=== PATIENT | female | born 1980 | race Caucasian/White ===

== ENCOUNTER 2018-06-12 06:09 | Day surgery (SDC) | payer OTHER ==
[2018-06-06 10:33] LABS: HEMATOCRIT 40.2 % (36.0-47.0); HEMOGLOBIN 14.3 g/dL (12.0-15.5); MEAN CORPUSCULAR HEMOGLOBIN 31.1 pg (27.0-33.4); MEAN CORPUSCULAR HGB CONC 35.5 g/dL (32.0-36.0); MEAN CORPUSCULAR VOLUME 88 fl (80-97); PLATELET COUNT 209 10^3/uL (150-450); RED BLOOD COUNT 4.59 10^6/uL (3.72-5.28); RED CELL DISTRIBUTION WIDTH 12.8 % (11.5-14.0); WHITE BLOOD COUNT 4.6 10^3/uL (4.0-10.5)
[2018-06-06 11:10] LABS: ALANINE AMINOTRANSFERASE 25 U/L (9-52); ALBUMIN 4.7 g/dL (3.5-5.0); ALKALINE PHOSPHATASE 38 U/L (38-126); ANION GAP 12 (5-19); ASPARTATE AMINO TRANSFERASE 19 U/L (14-36); BILIRUBIN,DIRECT 0.2 mg/dL (0.0-0.4); BILIRUBIN,TOTAL 0.7 mg/dL (0.2-1.3); BLOOD UREA NITROGEN 12 mg/dL (7-20); CALCIUM 9.8 mg/dL (8.4-10.2); CARBON DIOXIDE 30 mmol/L (22-30); CHLORIDE 101 mmol/L (98-107); GLUCOSE 95 mg/dL (75-110); POTASSIUM 4.6 mmol/L (3.6-5.0); SODIUM 142.5 mmol/L (137-145); TOTAL PROTEIN 7.7 g/dL (6.3-8.2)
[2018-06-06 11:54] LABS: APPEARANCE,URINE CLEAR; BILIRUBIN,URINE NEGATIVE (NEGATIVE); COLOR,URINE YELLOW; GLUCOSE, URINE NEGATIVE (NEGATIVE); KETONES,URINE NEGATIVE (NEGATIVE); LEUKOCYTE ESTERASE,URINE NEGATIVE (NEGATIVE); NITRITE,URINE NEGATIVE (NEGATIVE); PROTEIN,URINE NEGATIVE (NEGATIVE); URINE SPECIFIC GRAVITY 1.016; UROBILINOGEN,URINE NEGATIVE mg/dL (<2.0)
[~2018-06-12 06:09] MED LIST: CLINDAMYCIN 900 MG/D5W RTU 900 MG/50 ML RTUPB IV PRN; GENTAMICIN SULFATE 120 MG in DEXTROSE 5%-WATER 100 ML IV PRN; LACTATED RINGERS 1000 ML IV PRN; LIDOCAINE 0.5% INJ-PF (5 MG/ML) 50 ML SDV SUBCUT PRN
[2018-06-12] MEDS ORDERED: METHYLENE BLUE 50 MG/10 ML AMPULE ONE (07:10)
[2018-06-12] MEDS ORDERED: LIDOCAINE 1%/EPINEPHRINE INJ 20 ML VIAL ONE (07:10)
[2018-06-12] MEDS ORDERED: GENTAMICIN SULFATE INJ 80 MG/2 ML VIAL ONE (07:11)
[2018-06-12] MEDS ORDERED: FENTANYL CITRATE INJ/PF 250 MCG/5 ML AMPULE ONE (07:54)
[2018-06-12] MEDS ORDERED: ACETAMINOPHEN 1,000 MG/100 ML RTUPB IV ONE ×2 (07:54→18:30)
[2018-06-12] MEDS ORDERED: PROPOFOL INJ 200 MG/20 ML VIAL IV ONE (07:54)
[2018-06-12] MEDS ORDERED: LIDOCAINE 2% INJ-PF (20 MG/ML) 10 ML AMPUL ONE (07:54)
[2018-06-12] MEDS ORDERED: MIDAZOLAM 2 MG/2 ML INJ ONE (08:17)
[2018-06-12] MEDS ORDERED: BUPIVACAINE HCL 0.25 % INJ/PF (2.5 MG/1 ML) 30 ML VIAL ONE (08:52)
[2018-06-12] MEDS ORDERED: ESTROGENS,CONJUGATED 0.625 MG/1 GM 30 GM TUBE PV PRN (09:19)
[2018-06-12] MEDS ORDERED: MORPHINE SULFATE 10 MG/ML INJ IV PRN ×2 (09:34→11:31)
[2018-06-12] MEDS ORDERED: MEPERIDINE HCL/PF INJ 25 MG/1 ML DISP.SYRIN IV PRN (09:34)
[2018-06-12] MEDS ORDERED: PROMETHAZINE HCL INJ 25 MG/1 ML VIAL IV PRN ×2 (09:34)
[2018-06-12] MEDS ORDERED: FENTANYL CITRATE INJ/PF 100 MCG/2 ML AMPUL IV PRN ×3 (09:34)
[2018-06-12] MEDS ORDERED: DIPHENHYDRAMINE HCL 50 MG/ML VIAL IV PRN (09:34)
[2018-06-12] MEDS ORDERED: OXYCODONE-ACETAMINOPHEN 5-325 MG TABLET PO PRN ×3 (09:34→11:31)
[2018-06-12] MEDS: FENTANYL CITRATE INJ/PF 100 MCG/2 ML AMPUL ONE ×2 (11:03→11:22)
--- NOTE | 2018-06-12 11:25 | OPERATIVE REPORT E ---
Operative Report NAME: MOIRA PEREZ : 1980 AGE: 37Y DATE OF SURGERY: 06/12/2018 ROOM: PREOPERATIVE DIAGNOSES: 1. Abnormal uterine bleeding. 2. Chronic pelvic pain. 3. Uterine prolapse. POSTOPERATIVE DIAGNOSES: 1. Abnormal uterine bleeding. 2. Chronic pelvic pain. 3. Uterine prolapse. SURGEON: FABIOLA GALO M.D. ANESTHESIA: Dr. Hogna with general. FINDINGS: There was a large boggy uterus approximately 12 weeks in size. It was quite soft and boggy and normal-appearing ovaries. One did have a small hemorrhagic cyst on it, but this was left alone. This was on the left. The right ovary was normal. The fallopian tubes were normal as well. ESTIMATED BLOOD LOSS: 100 mL. COMPLICATIONS: None. SPECIMENS REMOVED: Uterus, cervix, and bilateral fallopian tubes. PROCEDURES: 1. Robotic-assisted total laparoscopic hysterectomy with bilateral salpingectomy. 2. Uterosacral suspension of the vaginal cuff. DESCRIPTION OF PROCEDURE: The patient was taken to the operating room and prepared and draped in a normal sterile fashion in the dorsal lithotomy position. Under sterile conditions, Fuentes catheter was placed to gravity. A sterile speculum was then placed into the vagina and the cervix was grasped on the anterior lip with a single-toothed tenaculum. The cervix was then dilated to accommodate a medium VCare, which was placed without difficulty. Speculum was then removed and attention was turned to the upper portion of the case after changing the gloves. Umbilical skin incision was made right at the umbilicus to accommodate the Gelpoint. This was approximately 2.5 cm long. The incision was then carried through to the underlying layer of fascia and the fascia was excised with Agosto's. The fascia was extended with Agosto's to accommodate at least 2 fingerbreadths and the GelPort was then inserted. The morcellation bag was then inserted into the right pericolic gutter. The abdomen was then inflated with 2 L of CO2 gas through the AirSeal port that was placed at the GelPort and the camera was introduced through the camera port with the above findings noted. The patient was placed in steep Trendelenburg, and under direct vision, two 5 mm ports were placed on either side of the umbilicus approximately 10 cm on each side. The robot was then docked and I unscrubbed, and then starting with the left adnexa, removed the left fallopian tube using the monopolar scissors and the vessel sealer as needed and this was removed by the patent legal assistant to the patent legal assistant's port. I then began with the left utero-ovarian ligament and transected this using the vessel sealer and carried this through to the uterine arteries down to the level of the external cervical os where the VCare cup could be located through the mucosa. I then went to the right adnexa and again removed the fallopian tube using the monopolar scissors and the vessel sealer as needed. Once the fallopian tube was removed, I then began at the utero-ovarian ligament and transected this using the vessel sealer and continued transection at the uterine arteries down to the level of the external cervical os using the vessel sealer. I then created the bladder flap using the monopolar scissors and blunt dissection. Beginning on the posterior side next to the uterosacral ligament, I then created the colpotomy using the monopolar scissors and carrying this around circumferentially following the outline of the VCare cup through the mucosa until the specimen was completely free. The specimen was then placed into the posterior cul-de-sac and the instruments were changed to a [employer] and a Prograf. The V-Loc needle was then introduced through the assistance port and closed the vaginal cuff using the V-Loc and incorporating the uterosacral ligament into the vaginal cuff closure for support. I completed this until the cuff was completely closed. I then inspected for hemostasis and found this to be so. The ureters seemed to be peristalsing at the end of this portion of the case. I then grasped the applied medical morcellation bag and brought this to the posterior cul-de-sac and placed the specimen on top of it. We then opened the bag and placed the specimen inside. While they undocked, I scrubbed back in. We removed the trocars and removed the GelPort. The morcellation bag edge was then pulled up through the GelPort and the morcellation of the uterus was completed using an 11-blade in a C-cut technique until the specimen was freed. The morcellation bag was then removed. The GelPort was then completely removed. The umbilical skin incision was closed at the fascia using 0 Vicryl on a UR6 needle and the skin was closed at all 3 sites using a 4-0 Vicryl. I inspected the vagina at the conclusion of the case. The anterior aspect that had been prolapsing seemed to be repaired with the uterosacral suspension and was not prolapsing with any significance at all and I did have the anesthesiologist create some Valsalva maneuver for the patient and there was no descent of the vaginal mucosa. The posterior aspect of the vaginal mucosa did seem to have a small amount of possible rectocele, but it was extremely mild. At this point, I did not feel that this was necessary to try to repair and decided to conclude the case. I do think that the patient may possibly need some prolapse surgery in the future, but it should be far enough in the future that we can get more longevity out of the procedure by doing it many years down the road as opposed to currently and having the procedure not get as much longevity. The patient tolerated the procedure well. Sponge, lap, and needle counts were correct x2, and the patient was taken to recovery in stable condition after the Fuentes catheter was removed. DICTATING PHYSICIAN: FABIOLA GALO M.D. [id number] PHY#: [id number] ID: [id number] JOB#: [id number] ACCT: [id number] cc:FABIOLA GALO M.D. >
[2018-06-12] MEDS ORDERED: KETOROLAC TROMETHAMINE INJ/PF 30 MG/1 ML SDV ONE (11:26)
[2018-06-12] MEDS: KETOROLAC TROMETHAMINE INJ/PF 30 MG/1 ML SDV IV SCH ×2 (13:25→22:32)
[2018-06-12] MEDS ORDERED: SUCCINYLCHOLINE CHLORIDE INJ 200 MG/10 ML VIAL ONE (15:29)
[2018-06-12] MEDS ORDERED: ONDANSETRON HCL INJ/PF 4 MG/2 ML SDV ONE (15:29)
[2018-06-12] MEDS ORDERED: ROCURONIUM BROMIDE INJ 50 MG/5 ML VIAL IV ONE (15:29)
[2018-06-12] MEDS ORDERED: GLYCOPYRROLATE 1 MG/5 ML SYRINGE ONE (15:29)
[2018-06-12] MEDS ORDERED: NEOSTIGMINE METHYLSULFATE 10 MG/10 ML VIAL ONE (15:29)
[2018-06-12] MEDS ORDERED: DEXAMETHASONE SOD PHOSPHATE INJ 4 MG/1 ML VIAL ONE (15:29)
[2018-06-13 05:13] LABS: HEMATOCRIT 31.9 % (36.0-47.0); HEMOGLOBIN 11.3 g/dL (12.0-15.5); MEAN CORPUSCULAR HEMOGLOBIN 31.2 pg (27.0-33.4); MEAN CORPUSCULAR HGB CONC 35.3 g/dL (32.0-36.0); MEAN CORPUSCULAR VOLUME 88 fl (80-97); PLATELET COUNT 166 10^3/uL (150-450); RED BLOOD COUNT 3.61 10^6/uL (3.72-5.28); WHITE BLOOD COUNT 10.4 10^3/uL (4.0-10.5)
[2018-06-13] MEDS: KETOROLAC TROMETHAMINE INJ/PF 30 MG/1 ML SDV IV SCH (06:30)
[2018-06-13] MEDS ORDERED: IBUPROFEN 800 MG TABLET ONE (08:39)
--- NOTE | 2018-06-13 09:31 | PDOC DISCHARGE SUMMARY ---
General - Admit/Disc Date/PCP Admission Date/Primary Care Provider: MICHAEL QUINONES MD Discharge Date: 06/13/18 - Discharge Diagnosis (1) Abnormal uterine bleeding Is this a current diagnosis for this admission?: Yes (2) Uterus, adenomyosis Is this a current diagnosis for this admission?: Yes (3) Uterine hypertrophy Is this a current diagnosis for this admission?: Yes (4) Chronic pelvic pain in female Is this a current diagnosis for this admission?: Yes - Additional Information Home Medications: Alprazolam [Xanax 0.25 Mg Tablet] 0.5 mg PO ASDIR PRN 08/15/13 Fluticasone Propionate [Flonase Allergy Relief] 15.8 ml NS DAILY 06/06/18 Sertraline HCl [Zoloft] 100 mg PO DAILY 06/06/18 History of Present Illness History of Present Illness: MOIRA PEREZ is a 37 year old female Hospital Course Hospital Course: underwent robotic hysterectomy with an unremarkable post operative course. feeling well today and ready for discharge home Physical Exam - Physical Exam Vital Signs: Temp Pulse Resp BP Pulse Ox 97.8 F 77 16 106/63 99 06/13/18 07:43 06/13/18 07:43 06/13/18 07:43 06/13/18 07:43 06/13/18 07:43 Intake & Output 06/12/18 06/13/18 06/14/18 06:59 06:59 06:59 Intake Total 0 3540 Output Total 1925 Balance 0 1615 Weight 68.04 kg 70.2 kg General appearance: PRESENT: no acute distress, cooperative GI/Abdominal exam: PRESENT: soft - incisions clean dry and intact. Result Laboratory Results: 06/13/18 05:01 06/06/18 10:05 06/13/18 05:01 WBC 10.4 RBC 3.61 L Hgb 11.3 L Hct 31.9 L MCV 88 MCH 31.2 MCHC 35.3 RDW 13.0 Plt Count 166 Plan Discharge Plan: discharge home with scheduled follow up in 2 wks. Time Spent: Less than 30 Minutes
[2018-06-13 10:00] VITALS: BP 105/54
[2018-06-13] MEDS ORDERED: IBUPROFEN 800 MG TABLET PO PRN (14:00)
== END 2018-06-13 11:25 | disposition home or self-care (01) ==
LOC: OROUT 06:09 → 2N 12:05 → OROUT 06-13 11:25
PROVIDERS: ATTEND Obstetrics & Gynecology
DX: D06.0 Carcinoma in situ of endocervix (principal); R87.810 Cervical high risk human papillomavirus (HPV) DNA test positive; Z30.2 Encounter for sterilization; N93.9 Abnormal uterine and vaginal bleeding, unspecified; N99.3 Prolapse of vaginal vault after hysterectomy; N83.202 Unspecified ovarian cyst, left side; E07.9 Disorder of thyroid, unspecified; Z79.899 Other long term (current) drug therapy; Z88.8 Allergy status to other drugs, medicaments and biological substances
CPT/HCPCS: 57283; 58570; S2900; 36415; 80053; 81001; 81025; 85027; 86850; 86900; 86901; 88307; 944; J0131; J0330; J1100; J1580; J1885; J2250; J2270; J2405; J2704; J3010; J3490; J7120; Q9968

== ENCOUNTER 2018-08-28 21:18 | Emergency (ER) | payer OTHER ==
[2018-08-28 23:49] LABS: ABSOLUTE BASOPHILS # (AUTO) 0.1 10^3/uL (0.0-0.2); ABSOLUTE EOSINOPHILS # (AUTO) 0.2 10^3/uL (0.0-0.6); ABSOLUTE LYMPHOCYTES (AUTO) 2.1 10^3/uL (0.5-4.7); ABSOLUTE MONOCYTES (AUTO) 0.7 10^3/uL (0.1-1.4); ABSOLUTE NEUT (AUTO) 4.2 10^3/uL (1.7-8.2); EOSINOPHILS % (AUTO) 2.2 % (0-6); HEMATOCRIT 39.6 % (36.0-47.0); HEMOGLOBIN 13.9 g/dL (12.0-15.5); LYMPHOCYTES % (AUTO) 29.7 % (13-45); MEAN CORPUSCULAR HEMOGLOBIN 30.9 pg (27.0-33.4); MEAN CORPUSCULAR HGB CONC 35.2 g/dL (32.0-36.0); MEAN CORPUSCULAR VOLUME 88 fl (80-97); MONOCYTES % (AUTO) 9.4 % (3-13); PLATELET COUNT 230 10^3/uL (150-450); RED BLOOD COUNT 4.52 10^6/uL (3.72-5.28); RED CELL DISTRIBUTION WIDTH 12.5 % (11.5-14.0); SEGMENTED NEUTROPHILS % (AUTO) 57.7 % (42-78); TOTAL CELLS COUNTED % (AUTO) 100 %; WHITE BLOOD COUNT 7.2 10^3/uL (4.0-10.5)
[2018-08-29 00:04] LABS: APPEARANCE,URINE CLOUDY; BILIRUBIN,URINE NEGATIVE (NEGATIVE); COLOR,URINE YELLOW; GLUCOSE, URINE NEGATIVE (NEGATIVE); KETONES,URINE NEGATIVE (NEGATIVE); LEUKOCYTE ESTERASE,URINE TRACE (NEGATIVE); NITRITE,URINE NEGATIVE (NEGATIVE); PROTEIN,URINE NEGATIVE (NEGATIVE); URINE SPECIFIC GRAVITY 1.025
[2018-08-29 00:06] LABS: ALANINE AMINOTRANSFERASE 58 U/L (9-52); ALBUMIN 4.7 g/dL (3.5-5.0); ALKALINE PHOSPHATASE 43 U/L (38-126); ANION GAP 11 (5-19); ASPARTATE AMINO TRANSFERASE 28 U/L (14-36); BILIRUBIN,DIRECT 0.4 mg/dL (0.0-0.4); BILIRUBIN,TOTAL 0.8 mg/dL (0.2-1.3); BLOOD UREA NITROGEN 15 mg/dL (7-20); CALCIUM 9.9 mg/dL (8.4-10.2); CARBON DIOXIDE 25 mmol/L (22-30); CHLORIDE 104 mmol/L (98-107); GLUCOSE 107 mg/dL (75-110); POTASSIUM 3.8 mmol/L (3.6-5.0); TOTAL PROTEIN 7.8 g/dL (6.3-8.2)
--- NOTE | 2018-08-29 02:08 | ER Document Report ---
ED General - General Chief Complaint: Dizziness Stated Complaint: DIZZINESS Time Seen by Provider: 08/28/18 23:22 Notes: Patient is a 38-year-old female with a chronic medical history of anxiety presents with 3 days of intermittent lightheadedness, dizziness, sensation of shortness of breath, and feeling increasingly anxious. The patient states that she feels like her anxiety is out of control but is concerned that something else may be going on. States the symptoms have been intermittent but getting progressively worse since onset. She did take some Xanax which helped but has run out of that medication. She has not contacted her primary care doctor regarding today's concerns. She denies any focal weakness, numbness, headache, neck pain or altered mental status. No visual field defects. No head trauma. Nothing seems to trigger or worsen her symptoms. TRAVEL OUTSIDE OF THE [place] IN LAST 30 DAYS: No - Related Data Allergies/Adverse Reactions: citalopram hydrobromide [From Celexa] Allergy (Verified 06/06/18 09:28) Uvula swelling Penicillins Allergy (Verified 06/06/18 09:28) Unknown Past Medical History - General Information source: Patient - Social History Smoking Status: Former Smoker Frequency of alcohol use: None Drug Abuse: None Family History: Reviewed & Not Pertinent Patient has suicidal ideation: No Patient has homicidal ideation: No - Past Medical History Cardiac Medical History: Denies: Hx Coronary Artery Disease, Hx Heart Attack, Hx Hypertension Pulmonary Medical History: Denies: Hx Asthma, Hx Bronchitis, Hx COPD, Hx Pneumonia, Hx Tuberculosis Neurological Medical History: Denies: Hx Cerebrovascular Accident, Hx Seizures Renal/ Medical History: Reports: Hx Kidney Stones - 2003. Denies: Hx Peritoneal Dialysis Musculoskeletal Medical History: Denies Hx Arthritis Psychiatric Medical History: Reports: Hx Anxiety, Hx Depression Past Surgical History: Reports: Hx Appendectomy, Hx Breast Surgery - augmentation, Hx Hysterectomy, Hx Orthopedic Surgery - wrist surgery, Hx Tonsillectomy - T/A, Hx Vascular Surgery - L FA. Denies: Hx Pacemaker - Immunizations Hx Diphtheria, Pertussis, Tetanus Vaccination: - Unsure Review of Systems - Review of Systems Notes: Constitutional: Negative for fever. HENT: Negative for sore throat. Eyes: Negative for visual changes. Cardiovascular: Negative for chest pain. Positive for lightheadedness Respiratory: Negative for shortness of breath. Gastrointestinal: Negative for abdominal pain, vomiting or diarrhea. Genitourinary: Negative for dysuria. Musculoskeletal: Negative for back pain. Skin: Negative for rash. Neurological: Negative for headaches, weakness or numbness. 10 point ROS negative except as marked above and in HPI. Physical Exam - Vital signs Vitals: Temp Pulse Resp BP Pulse Ox 98.4 F 88 20 139/84 H 99 08/28/18 21:26 08/28/18 21:26 08/28/18 21:26 08/28/18 21:26 08/28/18 21:26 Interpretation: Normal Notes: PHYSICAL EXAMINATION: GENERAL: Well-appearing, well-nourished and in no acute distress. HEAD: Atraumatic, normocephalic. EYES: Pupils equal round and reactive to light, extraocular movements intact, sclera anicteric, conjunctiva are normal. ENT: nares patent, oropharynx clear without exudates. Moist mucous membranes. NECK: Normal range of motion, supple without lymphadenopathy LUNGS: Breath sounds clear to auscultation bilaterally and equal. No wheezes rales or rhonchi. HEART: Regular rate and rhythm without murmurs ABDOMEN: Soft, nontender, normoactive bowel sounds. No guarding, no rebound. No masses appreciated. EXTREMITIES: Normal range of motion, no pitting or edema. No cyanosis. NEUROLOGICAL: Face symmetric. Tongue protrudes midline. Extraocular motions intact. Pupils are 2 mm and equally reactive. Normal speech, normal gait. 5 out of 5 strength in both the distal and proximal upper and lower extremities bilaterally. Sensation is grossly intact throughout. Finger to nose testing normal. Pronator drift normal. PSYCH: Moderately anxious SKIN: Warm, Dry, normal turgor, no rashes or lesions noted. Course - Re-evaluation Re-evalutation: 08/29/18 02:07 Patient presents with multiple vague complaints that did not appear to be concerning for any acute life-threatening pathology. Vitals are within normal limits at triage and at time of discharge. Physical examination is unremarkable. Patient has tolerated oral intake without difficulty. Patient was not noted to be in distress at any point during their ER visit. She is PERC criteria negative, labs unremarkable, complete neurologic assessment completely benign without any focal deficits or cerebellar signs. At this time , based on the reassuring evaluation, I do not suspect an acute LA, pulmonary embolus, aortic dissection, acute intra-abdominal pathology, stroke, or sepsis.Will discharge with return precautions and follow-up recommendations. Verbal discharge instructions given a the bedside and opportunity for questions given. Medication warnings reviewed. Patient is in agreement with this plan and has verbalized understanding of return precautions and the need for primary care follow-up in the next 24-72 hours. - Vital Signs Vital signs: Temp Pulse Resp BP Pulse Ox 97.7 F 69 17 118/80 99 08/29/18 02:19 08/29/18 02:19 08/29/18 02:19 08/29/18 02:19 08/29/18 02:19 - Laboratory Result Diagrams: 08/28/18 23:40 08/28/18 23:40 Laboratory results interpreted by me: 08/28/18 08/28/18 23:40 23:49 ALT 58 H Urine Urobilinogen 2.0 H Ur Leukocyte Esterase TRACE H Discharge - Discharge Clinical Impression: Dizziness, Shortness of breath, Lightheadedness Condition: Good Disposition: HOME, SELF-CARE Additional Instructions: Please return to the emergency room immediately if you experience any concerning symptoms including high fevers, severe headache, chest pain, difficulty breathing, abdominal pain, slurred speech, numbness or weakness in your arms or legs, or any other symptom that concerns you. Referrals: MICHAEL QUINONES MD [Primary Care Provider] - Follow up as needed
[2018-08-29 02:22] VITALS: BP 118/80
== END 2018-08-29 02:21 | disposition home or self-care (01) ==
LOC: ER 21:18
DX: R42 Dizziness and giddiness (principal); R06.02 Shortness of breath; Z88.0 Allergy status to penicillin; Z90.710 Acquired absence of both cervix and uterus
CPT/HCPCS: 36415; 80053; 81001; 84703; 85025; 99284